=== PATIENT | female | born 1980 | race Caucasian/White ===

== ENCOUNTER 2016-05-18 17:17 | Emergency (ER) | payer MEDICAID, OTHER ==
[2016-05-18] MEDS ORDERED: ONDANSETRON 4 MG TAB.RAPDIS PO ONE (17:24)
--- NOTE | 2016-05-18 17:25 | ER Document Report ---
ED Medical Screen (RME) - General Stated Complaint: LEFT FLANK PAIN Notes: Patient states she was told she had mono yesterday and that her spleen was enlarged. Told to come to the emergency room for any increased pain. Patient states she is having increased nausea and pain to the left side and is now having pain in her left shoulder. Patient denies fever, vomiting or diarrhea. I have greeted and performed a rapid initial assessment of this patient. A comprehensive ED assessment and evaluation of the patient, analysis of test results and completion of the medical decision making process will be conducted by additional ED providers. - Related Data Allergies/Adverse Reactions: prednisolone [Prednisolone] Allergy (Severe, Verified 05/18/16 17:21) rash Past Medical History Psychiatric Medical History: Reports: Hx Depression Past Surgical History: Reports: Hx Section - x 1, Hx Oral Surgery - expose teeth - Immunizations Hx Diphtheria, Pertussis, Tetanus Vaccination: No
[2016-05-18 17:51] LABS: ABSOLUTE BASOPHILS # (AUTO) 0.1 10^3/uL (0.0-0.2); ABSOLUTE EOSINOPHILS # (AUTO) 0.1 10^3/uL (0.0-0.6); ABSOLUTE LYMPHOCYTES (AUTO) 1.6 10^3/uL (0.5-4.7); ABSOLUTE MONOCYTES (AUTO) 0.6 10^3/uL (0.1-1.4); ABSOLUTE NEUT (AUTO) 4.5 10^3/uL (1.7-8.2); APPEARANCE,URINE SLIGHTLY-CLOUDY; BASOPHILS % (AUTO) 1.1 % (0-2); BILIRUBIN,URINE NEGATIVE (NEGATIVE); EOSINOPHILS % (AUTO) 1.9 % (0-6); GLUCOSE, URINE NEGATIVE (NEGATIVE); HEMATOCRIT 38.4 % (36.0-47.0); HEMOGLOBIN 13.4 g/dL (12.0-15.5); HGB HCT DIFFERENCE 1.8; KETONES,URINE 20 mg/dL (NEGATIVE); LEUKOCYTE ESTERASE,URINE MODERATE (NEGATIVE); LYMPHOCYTES % (AUTO) 23.2 % (13-45); MEAN CORPUSCULAR HEMOGLOBIN 30.3 pg (27.0-33.4); MEAN CORPUSCULAR HGB CONC 34.9 g/dL (32.0-36.0); MEAN CORPUSCULAR VOLUME 87 fl (80-97); MONOCYTES % (AUTO) 8.7 % (3-13); NITRITE,URINE NEGATIVE (NEGATIVE); PROTEIN,URINE NEGATIVE (NEGATIVE); RED BLOOD COUNT 4.43 10^6/uL (3.72-5.28); RED CELL DISTRIBUTION WIDTH 12.8 % (11.5-14.0); SEGMENTED NEUTROPHILS % (AUTO) 65.1 % (42-78); URINE SPECIFIC GRAVITY 1.028; UROBILINOGEN,URINE NEGATIVE mg/dL (<2.0)
[2016-05-18 18:06] LABS: ALANINE AMINOTRANSFERASE 25 U/L (9-52); ALBUMIN 4.6 g/dL (3.5-5.0); ALKALINE PHOSPHATASE 57 U/L (38-126); ANION GAP 16 (5-19); ASPARTATE AMINO TRANSFERASE 18 U/L (14-36); BILIRUBIN,DIRECT 0.2 mg/dL (0.0-0.4); BILIRUBIN,TOTAL 0.6 mg/dL (0.2-1.3); BLOOD UREA NITROGEN 12 mg/dL (7-20); CALCIUM 10.2 mg/dL (8.4-10.2); CARBON DIOXIDE 24 mmol/L (22-30); CHLORIDE 103 mmol/L (98-107); CREATININE RESULT 0.85 mg/dL (0.52-1.25); GLUCOSE 86 mg/dL (75-110); LIPASE 131.3 U/L (23-300); POTASSIUM 4.3 mmol/L (3.6-5.0); SODIUM 142.5 mmol/L (137-145); TOTAL PROTEIN 7.5 g/dL (6.3-8.2)
[2016-05-18] MEDS ORDERED: ONDANSETRON ODT 4 MG TAB (6 TAB/DSPK) PO PRN (18:50)
--- NOTE | 2016-05-18 18:52 | ER Document Report ---
ED General - General Chief Complaint: Flank Pain Stated Complaint: LEFT FLANK PAIN Notes: Patient is a 36-year-old female without past medical history, recently diagnosed with mononucleosis who presents with concerns about a possible splenic rupture. States that for the past 2 days she has had a dull, intermittent, throbbing pain located diffusely in her abdomen and has had some intermittent left shoulder pain. States that she had been told by the urgent care where the diagnosis of mono was made after formal testing that she should come to the emergency department she would have such symptoms as this could be a sign of splenic rupture. She has not had any direct trauma to the abdomen. Nothing improves or worsens the pain. She has not had any lightheadedness or syncope. TRAVEL OUTSIDE OF THE [place] IN LAST 30 DAYS: No - Related Data Allergies/Adverse Reactions: prednisolone [Prednisolone] Allergy (Severe, Verified 05/18/16 17:21) rash Past Medical History - General Information source: Patient - Social History Smoking Status: Never Smoker Chew tobacco use (# tins/day): No Frequency of alcohol use: None Drug Abuse: None Lives with: Spouse/Significant other Family History: Reviewed & Not Pertinent Patient has suicidal ideation: No Patient has homicidal ideation: No Renal/ Medical History: Denies: Hx Peritoneal Dialysis Psychiatric Medical History: Reports: Hx Depression Past Surgical History: Reports: Hx Section - x 1, Hx Oral Surgery - expose teeth - Immunizations Hx Diphtheria, Pertussis, Tetanus Vaccination: No Review of Systems - Review of Systems Notes: Constitutional: Negative for fever. HENT: Negative for sore throat. Eyes: Negative for visual changes. Cardiovascular: Negative for chest pain. Respiratory: Negative for shortness of breath. Gastrointestinal: Positive for abdominal pain, negative for vomiting or diarrhea. Genitourinary: Negative for dysuria. Musculoskeletal: Negative for back pain. Skin: Negative for rash. Neurological: Negative for headaches, weakness or numbness. 10 point ROS negative except as marked above and in HPI. Physical Exam - Vital signs Vitals: Temp Pulse Resp BP Pulse Ox 97.7 F 99 20 123/75 100 05/18/16 17:21 05/18/16 17:21 05/18/16 17:21 05/18/16 17:21 05/18/16 17:21 Interpretation: Normal Notes: PHYSICAL EXAMINATION: GENERAL: Well-appearing, well-nourished and in no acute distress. HEAD: Atraumatic, normocephalic. EYES: Pupils equal round and reactive to light, extraocular movements intact, sclera anicteric, conjunctiva are normal. ENT: nares patent, oropharynx clear without exudates. Moist mucous membranes. NECK: Normal range of motion, supple without lymphadenopathy LUNGS: Breath sounds clear to auscultation bilaterally and equal. No wheezes rales or rhonchi. HEART: Regular rate and rhythm without murmurs ABDOMEN: Soft, nontender, normoactive bowel sounds. No guarding, no rebound. No masses appreciated. EXTREMITIES: Normal range of motion, no pitting or edema. No cyanosis. NEUROLOGICAL: No focal neurological deficits. Moves all extremities spontaneously and on command. PSYCH: Normal mood, normal affect. SKIN: Warm, Dry, normal turgor, no rashes or lesions noted. Course - Re-evaluation Re-evalutation: 05/18/16 18:50 Patient presents with left upper quadrant abdominal pain and intermittent nausea for the past 2 weeks. She has tested positive for mononucleosis and was concerned that she could have a spleen rupture. She has no clinical symptoms to suggest this diagnosis, vitals within normal limits. A bedside FAST exam does not demonstrate any fluid in the abdomen or pelvis. No focal abdominal tenderness on exam. Laboratory obtained in triage likewise are unremarkable. At this time he did not suspect any acute life-threatening diagnosis including pyelonephritis, bowel obstruction, mesenteric ischemia, splenic rupture, or nephrolithiasis. At this time will discharge with return precautions and follow -up recommendations. Verbal discharge instructions given a the bedside and opportunity for questions given. Medication warnings reviewed. Patient is in agreement with this plan and has verbalized understanding of return precautions and the need for primary care follow-up in the next 24-72 hours. - Vital Signs Vital signs: Temp Pulse Resp BP Pulse Ox 97.9 F 81 16 112/81 100 05/18/16 19:13 05/18/16 19:13 05/18/16 19:13 05/18/16 19:13 05/18/16 19:13 - Laboratory Result Diagrams: 05/18/16 17:30 05/18/16 17:30 Laboratory results interpreted by me: 05/18/16 17:30 Urine Ketones 20 H Ur Leukocyte Esterase MODERATE H Urine Ascorbic Acid 40 H Discharge - Discharge Clinical Impression: Nausea Abdominal pain Qualifiers: Abdominal location: left upper quadrant Qualified Code(s): R10.12 - Left upper quadrant pain Condition: Good Disposition: HOME, SELF-CARE Additional Instructions: Please return if you have any additional symptoms that are worrisome to you including worsening abdominal pain, persistent vomiting, passing out, or any other concerns you may have. Your spleen looks normal on ultrasound today did not have any symptoms, vital sign changes, or lab changes to suggest a rupture.
[2016-05-18 19:16] VITALS: BP 112/81
== END 2016-05-18 19:00 | disposition home or self-care (01) ==
LOC: ER 17:17
DX: R10.12 Left upper quadrant pain (principal); R11.0 Nausea; M25.512 Pain in left shoulder; Z88.8 Allergy status to other drugs, medicaments and biological substances
CPT/HCPCS: 99284; 36415; 84702; 83690; 85025; 80053; 81001; S0119